=== PATIENT | male | born 1950 | race Two or more races ===

== ENCOUNTER 2020-08-15 22:26 | Inpatient (IN) | payer OTHER ==
[~2020-08-15] VITALS: Ht 182.9 cm; Wt 81.6 kg
[2020-08-15 23:35] LABS: Basophils # (auto) 0.1 10 ^3/uL (0-0.2); Basophils % (auto) 0.6 % (0.0-2.0); Hemoglobin 14.1 g/dL (13.5-17.5); Monocytes # (auto) 0.9 10 ^3/uL (0-1.3); Red Cell Distribution Width 14.3 % (11.8-14.3)
[2020-08-15 23:37] LABS: Eosinophils % (auto) 10.5 % (0.0-7.0); Hematocrit 40.7 % (41.0-53.0); Lymphocytes # (auto) 0.7 10 ^3/uL (0.4-5.4); Lymphocytes % (auto) 7.3 % (10.0-50.0); Mean Corpuscular Hemoglobin 33.9 pg (28.0-32.0); Mean Corpuscular Hgb Conc. 34.7 g/dL (32.0-36.0); Mean Corpuscular Volume 97.7 fL (80.0-100.0); Monocytes % (auto) 9.6 % (0.0-12.0); Neutrophils # (auto) 6.5 10 ^3/uL (1.6-8.6); Platelet Count (auto) 143 10^3/uL (140-450); Red Blood Cells 4.17 10^6/uL (4.5-5.90); White Blood Cell 9.1 10^3/uL (4.4-10.8)
[2020-08-15 23:54] LABS: Partial Thromboplastin Time 29.9 sec (23.0-31.2)
[2020-08-15 23:55] LABS: Alanine Aminotransferase 70 U/L (16-61); Albumin 3.6 g/dL (3.4-5.0); Anion Gap 10 (5-15); Aspartate Aminotransferase 123 U/L (15-37); BUN/Creatinine Ratio 19.5; Blood Urea Nitrogen 16 mg/dL (7-18); Carbon Dioxide 25 mmol/L (21-32); Chloride 98 mmol/L (98-107); GFR African American 119 mL/min; GFR Non-African American 98 mL/min; Glucose 129 mg/dL (74-106); Potassium 3.5 mmol/L (3.5-5.1); Sodium 133 mmol/L (136-145)
[2020-08-16] LABS: Alkaline Phosphatase 95 U/L (45-117); Bilirubin, Total 0.7 mg/dL (0.2-1.0); Total Protein 7.2 g/dL (6.4-8.2)
[2020-08-16] MEDS ORDERED: PEN400T PO (01:52)
[2020-08-16] MEDS ORDERED: AMOX500T86 PO (01:52)
[2020-08-16] MEDS ORDERED: LISI-275 PO (01:56)
[2020-08-16] MEDS ORDERED: NITROGLYCERIN 0.4 MG SL TAB SL PRN (02:00)
[2020-08-16] MEDS ORDERED: DOCUSATE SOD 100 MG CAP PO PRN (02:00)
[2020-08-16] MEDS ORDERED: ACETAMINOPHEN 325 MG TAB PO PRN (02:00)
[2020-08-16] MEDS ORDERED: MORPHINE SULF INJ 2 MG/ML SYRINGE 1ML IV PRN (02:00)
[2020-08-16] MEDS ORDERED: ONDANSETRON HCL 4 MG/2 ML VIAL IV PRN (02:00)
[2020-08-16] MEDS ORDERED: HYDROcodone-ACET 5/325MG TAB PO PRN (02:00)
[2020-08-16] MEDS ORDERED: DEXTROSE (50%) 50ML SYRG IV PRN (02:00)
[2020-08-16] MEDS ORDERED: TERA10CA36 PO (02:03)
[2020-08-16] MEDS ORDERED: HYDR25TA4 PO (02:03)
[2020-08-16] MEDS ORDERED: FINA5TAB4 PO (02:03)
[2020-08-16] MEDS ORDERED: LOVA20TA4 PO ×2 (02:05)
[2020-08-16] MEDS ORDERED: METF-370 PO (02:08)
[2020-08-16] MEDS ORDERED: CARV6.2551 PO (02:09)
[2020-08-16] MEDS ORDERED: ASPI-543 PO (02:10)
[2020-08-16 06:42] LABS: Basophils # (auto) 0.1 10 ^3/uL (0-0.2); Hematocrit 39.2 % (41.0-53.0); Lymphocytes # (auto) 0.7 10 ^3/uL (0.4-5.4); Lymphocytes % (auto) 12.5 % (10.0-50.0); Monocytes # (auto) 0.7 10 ^3/uL (0-1.3); Neutrophils # (auto) 3.5 10 ^3/uL (1.6-8.6); Neutrophils % (auto) 59.6 % (37.0-80.0); White Blood Cell 5.9 10^3/uL (4.4-10.8)
[2020-08-16 06:44] LABS: Basophils % (auto) 0.9 % (0.0-2.0); Eosinophils # (auto) 0.9 10 ^3/uL (0-0.8); Eosinophils % (auto) 14.8 % (0.0-7.0); Hemoglobin 13.9 g/dL (13.5-17.5); Mean Corpuscular Hemoglobin 34.3 pg (28.0-32.0); Mean Corpuscular Hgb Conc. 35.4 g/dL (32.0-36.0); Mean Corpuscular Volume 96.9 fL (80.0-100.0); Monocytes % (auto) 12.2 % (0.0-12.0); Platelet Count (auto) 155 10^3/uL (140-450); Red Blood Cells 4.04 10^6/uL (4.5-5.90); Red Cell Distribution Width 13.8 % (11.8-14.3)
[2020-08-16] MEDS ORDERED: AMOXICILLIN/CLAVUL 875 MG TAB ONE (06:51)
[2020-08-16] MEDS: SODIUM CHLOR 0.9% PF (SALINE LOCK) 10ML VIAL/SYR IV SCH ×2 (06:59→14:13)
[2020-08-16] MEDS: InsuLIN REG 1unit/0.01ml Soln (100units/ml) SC SCH ×3 (07:00→17:00)
[2020-08-16 07:02] LABS: Albumin 3.6 g/dL (3.4-5.0); Calcium 8.8 mg/dL (8.5-10.1); Potassium 3.5 mmol/L (3.5-5.1)
[2020-08-16 07:06] LABS: Bilirubin, Total 0.5 mg/dL (0.2-1.0); Total Protein 7.2 g/dL (6.4-8.2)
[2020-08-16] MEDS: AMOXICILLIN/CLAVULAN 500 MG TAB PO SCH ×2 (07:07→14:42)
[2020-08-16] MEDS: ACCU-CHEK COMFORT CURVE STRIP VI SCH ×3 (07:14→17:15)
[2020-08-16] MEDS ORDERED: MULTIPLE VITAMIN TAB PO SCH (10:00)
[2020-08-16] MEDS ORDERED: ENOXAPARIN SOD 40 MG/0.4 ML SYRINGE SC SCH (10:00)
[2020-08-16] MEDS ORDERED: ASCORBIC ACID 500 MG TAB PO SCH (10:00)
[2020-08-16] MEDS ORDERED: FAMOTIDINE (10MG/ML) 2ML VL IV SCH (10:00)
[2020-08-16] MEDS ORDERED: ASPirin 81 mg TAB PO SCH (10:00)
[2020-08-16] MEDS ORDERED: TERAZOSIN HCL 5 MG CAP PO SCH (10:00)
[2020-08-16] MEDS ORDERED: FINASTERIDE 5 MG TAB PO SCH (10:00)
[2020-08-16] MEDS ORDERED: CARVEDILOL 3.125 MG TAB PO SCH (10:00)
[2020-08-16] MEDS ORDERED: PENTOXIFYLLINE 400 MG ER TAB PO SCH (10:00)
[2020-08-16] MEDS ORDERED: CARV3.1240 PO (15:56)
[2020-08-16] MEDS ORDERED: LISI2.5T47 PO (15:56)
[2020-08-16 16:05] VITALS: BP 148/69
[2020-08-16 17:00] VITALS: BP 148/69
[2020-08-16 17:27] VITALS: BP 118/70
[2020-08-16] MEDS ORDERED: InsuLIN REG 1unit/0.01ml Soln (100units/ml) SC SCH (22:00)
[2020-08-16] MEDS ORDERED: ATORVASTATIN 20 MG TAB PO SCH (22:00)
== END 2020-08-16 18:10 | disposition home or self-care (01) | DRG 313 ==
LOC: ER 22:26 → TELE 22:27 → DOU IN ADS 08-16 17:13
PROVIDERS: ADMIT Nurse Practitioner Family; ATTEND Internal Medicine
DX: R07.89 Other chest pain (principal); E11.65 Type 2 diabetes mellitus with hyperglycemia; R00.1 Bradycardia, unspecified; I10 Essential (primary) hypertension; M19.90 Unspecified osteoarthritis, unspecified site; E78.5 Hyperlipidemia, unspecified; N40.0 Benign prostatic hyperplasia without lower urinary tract symptoms; Z79.82 Long term (current) use of aspirin; Z86.79 Personal history of other diseases of the circulatory system; Z90.49 Acquired absence of other specified parts of digestive tract; Z20.822 Contact with and (suspected) exposure to COVID-19
CPT/HCPCS: 36415; 71045; 80053; 82962; 83880; 84484; 85025; 85610; 85730; 87426; 93005; 93306; 96372; 96374; 96375; G0378; J3490